=== PATIENT | male | born 1970 | race Caucasian/White ===

== ENCOUNTER 2025-01-14 00:41 | Emergency (ER) | payer OTHER ==
[2025-01-14 00:59] VITALS: BP 103/77; PULSE 90; RESP 20; TEMP 98.6; BMI 27.1
[2025-01-14] MEDS ORDERED: LIDOCAINE HCL 2% JELLY 6 ML TP ONE (02:09)
[2025-01-14] MEDS: LIDOCAINE HCL 2% JELLY 6 ML TP ONE (02:30)
[2025-01-14 02:37] LABS: EPI CELLS 6 /uL (0-25.1); HYALINE CASTS 1 /uL (0-3.1); URINE APPEARANCE CLEAR; URINE BACTERIA 813 /uL (0-1359); URINE BILIRUBIN NEGATIVE (NEGATIVE); URINE COLOR YELLOW; URINE GLUCOSE (UA) NEGATIVE (NEGATIVE); URINE KETONE NEGATIVE (NEGATIVE); URINE LEUK ESTERASE 1+ (NEGATIVE); URINE NITRITE NEGATIVE (NEGATIVE); URINE PROTEIN NEGATIVE (NEGATIVE); URINE RBC 117 /uL (0-23.9); URINE UROBILINOGEN 1.0 mg/dL (0.2-1.0); URINE WBC 128 /uL (0-25.8)
[2025-01-14] MEDS ORDERED: CEPHALEXIN MONOHYDRATE 500 MG CAPSULE (UD) ONE (03:42)
[2025-01-14] MEDS: CEPHALEXIN MONOHYDRATE 500 MG CAPSULE (UD) PO ONE (03:42)
== END 2025-01-14 03:46 | disposition home or self-care (01) ==
LOC: JER 00:41
PROC: 0T9B70Z Drainage of Bladder with Drainage Device, Via Natural or Artificial Opening (ICD-10-PCS; principal; 2025-01-14)
DX: R33.9 Retention of urine, unspecified (principal); R31.9 Hematuria, unspecified; R21 Rash and other nonspecific skin eruption; N48.89 Other specified disorders of penis
CPT/HCPCS: 81003; 87086; 99284-25

== ENCOUNTER 2025-01-18 23:08 | Emergency (ER) | payer OTHER ==
[2025-01-18 23:18] VITALS: BP 143/75; PULSE 99; RESP 18; TEMP 99.1; BMI 27.0
== END 2025-01-19 03:23 | disposition home or self-care (01) ==
LOC: JER 23:08
DX: Z46.6 Encounter for fitting and adjustment of urinary device (principal)
CPT/HCPCS: 99283-25; 99284-25